=== PATIENT | female | born 1975 | race Caucasian/White ===

== ENCOUNTER 2024-07-18 07:51 | Outpatient (CLI) | payer BC ==
[2024-07-18 10:04] LABS: Prothrombin Time 12.9 sec (12.0-14.7)
== END 2024-07-18 07:52 | disposition home or self-care (01) ==
LOC: LABBT 07:51
PROVIDERS: ATTEND Urology
DX: Z01.818 Encounter for other preprocedural examination (principal); N20.1 Calculus of ureter
CPT/HCPCS: 85610; 85730; 87086; 93005; 93010